=== PATIENT | female | born 1955 | race American Indian/Alaskan Native ===

== ENCOUNTER 2018-12-17 06:10 | Observation (INO) | payer OTHER ==
[2018-12-17] MEDS ORDERED: ECOTRIN PO ONE (06:39)
[2018-12-17 07:08] LABS: Basophils # (Auto) 0.1 K/mm3 (0.0-0.1); Basophils % (Auto) 1.1 % (0.0-1.8); Eosinophils # (Auto) 0.4 K/mm3 (0.0-0.4); Eosinophils % (Auto) 6.6 % (0.0-4.3); Hematocrit 41.1 % (30.3-42.9); Hemoglobin 13.9 gm/dl (10.1-14.3); Lymphocytes # (Auto) 1.7 K/mm3 (1.2-5.4); Lymphocytes % (Auto) 26.5 % (13.4-35.0); Mean Corpuscular HGB Conc 34 % (30-34); Mean Corpuscular Volume 82 fl (79-97); Monocytes # (Auto) 0.6 K/mm3 (0.0-0.8); Monocytes % (Auto) 8.6 % (0.0-7.3); Platelet Count 126 K/mm3 (140-440); Red Blood Count 4.99 M/mm3 (3.65-5.03); Red Cell Distribution Width 15.4 % (13.2-15.2)
[2018-12-17 07:18] LABS: INR 0.94 (0.87-1.13)
[2018-12-17 07:19] LABS: BUN/Creatinine Ratio 17; Blood Urea Nitrogen 12 mg/dL (7-17); Calcium 9.1 mg/dL (8.4-10.2); Hemolysis Index 82; Partial Thromboplastin Time 27.7 Sec. (24.2-36.6)
[2018-12-17] MEDS ORDERED: HEPARIN 10,000 UNITS/10 ML ONE (09:24)
[2018-12-17] MEDS ORDERED: NITROGLYCERIN SYRINGE 3 ML ONE (09:25)
[2018-12-17] MEDS ORDERED: CALAN ONE (09:25)
[2018-12-17] MEDS: SUBLIMAZE ONE ×2 (09:53→10:08)
[2018-12-17] MEDS: VERSED ONE ×2 (09:53→10:08)
[2018-12-17] MEDS: HEPARIN/NS 5000 UNIT/500ML(CATH LAB) 1,000 ML IR ONE ×2 (09:54→10:00)
[2018-12-17] MEDS: NACL 0.9% 500 ML 500 ML IV SCH ×2 (09:54→10:00)
[2018-12-17] MEDS: XYLOCAINE 2% INFILTRATI ONE ×3 (09:54→10:11)
[2018-12-17] MEDS ORDERED: ZESTRIL PO SCH (10:00)
[2018-12-17] MEDS ORDERED: PLAVIX ONE (10:57)
[2018-12-17] MEDS ORDERED: ALUM-MAG HYDROX-SIMETH 200-200-20MG/5ML ONE (10:58)
--- NOTE | 2018-12-17 11:24 | Event Note ---
Date: 12/17/18 Patient underwent outpatient cardiac catheterization, followed by ad hoc coronary angioplasty and stenting of the mid and distal segments of the LAD, excellent angiographic result. She will be admitted for overnight observation, post intervention routine management. Anticipated discharge tomorrow morning.
[2018-12-17] MEDS ORDERED: NACL 0.9% 1000 ML 1,000 ML IV SCH (12:00)
[2018-12-17] MEDS ORDERED: IMDUR PO SCH (12:00)
--- NOTE | 2018-12-17 12:50 | Cardiac Catherization Report ---
CARDIAC CATHETERIZATION AND CORONARY ANGIOPLASTY REASON FOR PROCEDURE: The patient is a 63-year-old woman with a history of 3-vessel coronary artery bypass surgery performed in 1999. She recently presented for outpatient evaluation. A thallium stress test was done that revealed reversible ischemia in the anterior and lateral regions of the left ventricle. Based on the thallium results, she is recommended for a cardiac catheterization. PROCEDURE: 1. Left heart catheterization. 2. Selective left and right coronary angiography. 3. Left ventricular angiography. 4. Angiography of the left internal mammary artery. 5. Angiography of the saphenous vein graft. 6. Coronary angioplasty and stenting of the left anterior descending artery in its mid and distal segments. 7. Sedation time, start 10:07, end 10:53. The patient was prepped and draped in a sterile fashion after informed consent. The right femoral artery was entered using Seldinger technique followed by placement of a 6-[place] sheath. Selective left and right coronary angiography was performed using #4 right and left Anuradha catheters. The right Anuradha catheter was used for saphenous vein graft angiography. A left internal mammary artery catheter was used for the left internal mammary artery angiography. A pigtail catheter was then used for left ventricle angiography. The angiograms were reviewed. CORONARY ANGIOGRAPHY: The left main coronary artery was free of significant disease. The left anterior descending artery was not previously bypassed. This vessel contained focal stenosis of the mid segment, about 70% severity followed by another focal 90% stenosis of the distal segment near the apex. The LAD was a large wrap around vessel. The first diagonal branch of the LAD was completely occluded at its origin. This vessel was noted to have contained a previous stent in its proximal segment. It was occluded within the stented segment. A saphenous vein graft was anastomosed to a small to medium sized sub-branch of the first diagonal. This vein graft was patent with good anastomosis and good distal runoff into a mildly diffusely diseased sub-branch vessel. There was a 30-50% ostial stenosis of the saphenous vein graft, followed by diffuse mild atherosclerosis of the body of the graft. The [place] circumflex artery was completely occluded in its proximal segment. The saphenous vein graft to the circumflex system was patent, but appear to perfuse a very small terminal obtuse marginal branch. This saphenous vein graft contained diffuse mild atherosclerosis in its proximal and mid segments, with a 70% stenosis of the distal body of the vein graft. As reported, the target branch was a very small caliber terminal obtuse marginal. The right coronary artery was dominant, and also occluded in its proximal segment. The saphenous vein graft to the right coronary system was occluded at its origin. There was faint collateralization of the distal right coronary segments from the left coronary system. The left ventricle was moderately dilated. There was moderately severe left ventricular systolic dysfunction, diffuse hypokinesis, ejection fraction estimated at 35%. CORONARY ANGIOPLASTY: After review of the angiograms, we recommended conservative management of the saphenous vein graft to the diagonal sub-branch, the saphenous vein graft to the small terminal obtuse marginal, and the occluded right coronary system, which was fed by faint collaterals from the left coronary system. We recommended ad hoc coronary intervention to optimally perfuse the large wraparound LAD. It appeared that the LAD was not previously bypassed. We selected a 4.0 EBU guiding catheter, advanced to the left coronary ostium. A 0.014 inch [employer] Dispatcher 50 guidewire was then directed into the LAD across the lesional segments. In a primary stenting maneuver, we first deployed a 2.5 x 8 mm drug-eluting stent to the distal LAD stenosis, inflating to stent optimal pressures. An excellent angiographic result was achieved. We then turned our attention to the mid stenosis, where we deployed a 2.75 x 8 mm drug-eluting stent, similarly inflating to optimal pressures. Following stenting, the wires were removed, post-intervention angiograms revealed an excellent angiographic result at the mid and distal segments of the LAD that were treated with spot stenting, FLOR[place] 3 flow and excellent angiographic result. The patient tolerated the procedure well and there were no complications. The catheters and the wires and the sheaths were removed, hemostasis achieved using an Angio-Seal device. The patient was returned to the postprocedure unit in stable condition. CONCLUSION: 1. Severe 3-vessel coronary artery disease. 2. Ischemic cardiomyopathy, moderately severe left ventricular dysfunction, ejection fraction 35%. 3. Patent saphenous vein graft to the diagonal sub-branch, with a 30-40% stenosis of the proximal vein graft. 4. Patent saphenous vein graft to the distal circumflex, with a 60-70% distal stenosis of the body of the vein graft. 5. Occluded saphenous vein graft to the right coronary, the small distal vessel is filled from left collaterals. 6. Severe disease of the LAD, which was not previously bypassed. A 75% stenosis of the mid segment, and another focal 90% stenosis of the distal segment were treated successfully with serial 8 mm 2.5 and 2.75 drug-eluting stents. JOB# [id number] JOANNA/NTS
[2018-12-17] MEDS ORDERED: NACL 0.9% 1000 ML 1,000 ML ONE (13:11)
[2018-12-17] MEDS ORDERED: NON-FORMULARY (Lisinopril/Hydrochlorothiazide [Zestoretic 10-12.5 Mg Tablet] 1 TAB) PO SCH (22:00)
[2018-12-17] MEDS ORDERED: LOPRESSOR PO SCH (22:00)
[2018-12-18 06:00] LABS: Basophils % (Auto) 0.5 % (0.0-1.8); Eosinophils # (Auto) 0.4 K/mm3 (0.0-0.4); Eosinophils % (Auto) 6.1 % (0.0-4.3); Hemoglobin 12.8 gm/dl (10.1-14.3); Lymphocytes # (Auto) 0.9 K/mm3 (1.2-5.4); Lymphocytes % (Auto) 15.9 % (13.4-35.0); Mean Corpuscular HGB Conc 34 % (30-34); Mean Corpuscular Volume 83 fl (79-97); Monocytes # (Auto) 0.5 K/mm3 (0.0-0.8); Platelet Count 110 K/mm3 (140-440); Red Blood Count 4.56 M/mm3 (3.65-5.03); Red Cell Distribution Width 15.4 % (13.2-15.2)
[2018-12-18 06:29] LABS: BUN/Creatinine Ratio 20; Blood Urea Nitrogen 14 mg/dL (7-17); Calcium 8.5 mg/dL (8.4-10.2); Creatine Kinase MB 6.6 ng/mL (0.0-4.0); Hemolysis Index 7
[2018-12-18 07:23] LABS: Chol/HDL Ratio 6.03 %; HDL Cholesterol 30 mg/dL (40-59); LDL Cholesterol,Direct 142 mg/dL (50-130)
--- NOTE | 2018-12-18 08:40 | XRay Report ---
AP CHEST: HISTORY: Post PCI Previous CABG changes are suspected. Heart size is borderline. The lungs are clear. No pleural effusion or pneumothorax. IMPRESSION: Borderline heart size. Lungs clear.
[2018-12-18] MEDS ORDERED: NITROSTAT SL PRN (09:47)
[2018-12-18] MEDS ORDERED: ZESTRIL PO SCH (09:47)
--- NOTE | 2018-12-18 09:54 | Discharge Summary ---
Providers - Providers Date of Admission: 12/17/18 11:24 Date of discharge: 12/18/18 Attending physician: ZANDER CORCORAN 12/17/18 Consult to Cardiac Rehabilitation [CONS] Routine Reason For Exam: post pci Primary care physician: BRADLEY SEAMAN MD Hospitalization Reason for admission: Elective admission for coronary angio and PCI Condition: Good Pertinent studies: Cath and PCI Procedures: Cath and PCI Hospital course: Patient electively admitted for coronary angio and PCI (please see cath report for details. No complications post PCI. Right groin intact. Patient denies chest pain or shortness of breath. Lipitor increased to 80 mg po qhs and Zetia added upon discharge in order to achieve LDL cholesterol below or equal to 50. 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 Disposition: - TO HOME OR SELFCARE Time spent for discharge: 31 min - Discharge Diagnoses (1) Coronary artery disease Status: Acute Qualifiers: Coronary Disease-Associated Artery/Lesion type: [place] artery [place] vs. transplanted heart: [place] heart Associated angina: with stable angina Qualified Code(s): I25.118 - Atherosclerotic heart disease of [place] coronary artery with other forms of angina pectoris Core Measure Documentation - Palliative Care Palliative Care/ Comfort Measures: Not Applicable - Core Measures Any of the following diagnoses?: none Exam - Constitutional Vitals: Temp Pulse Resp BP Pulse Ox 98.4 F 66 18 117/67 99 12/18/18 08:20 12/18/18 08:19 12/18/18 08:19 12/18/18 08:19 12/18/18 09:35 General appearance: Present: no acute distress - EENT Eyes: Present: PERRL - Neck Neck: Present: supple - Respiratory Respiratory effort: normal Respiratory: bilateral: CTA - Cardiovascular Rhythm: regular - Extremities Extremities: no ischemia - Abdominal General gastrointestinal: Present: soft, non-tender Plan Activity: no driving until cleared by PCP (for another 24 hours) Weight Bearing Status: Non-Weight Bearing (for another 24 hours) Diet: low fat, low cholesterol, low salt Wound: keep clean and dry Follow up with: BRADLEY SEAMAN MD [Primary Care Provider] - 7 Days Forms: Work/School Excuse Out Patient Prescriptions: Aspirin EC [Aspirin Enteric Coated TAB] 81 mg PO DAILY #90 tablet hydroCHLOROthiazide [HCTZ] 25 mg PO QDAY #30 capsule ISOSORBIDE MONOnitrate [Imdur ER] 30 mg PO QDAY #30 tablet AtorvaSTATin [Lipitor] 80 mg PO HS #30 tablet Metoprolol Xl [Metoprolol SUCCINATE ER TAB] 100 mg PO QDAY #30 tablet Nitroglycerin [Nitrostat] 0.4 mg SL .Q5MIN PRN #25 tablet PRN Reason: Chest Pain Clopidogrel [Plavix] 75 mg PO QDAY #30 tablet Lisinopril [Zestril TAB] 20 mg PO QDAY #30 tablet Ezetimibe [Zetia] 10 mg PO QDAY #30 tablet
[2018-12-18] MEDS ORDERED: PLAVIX PO SCH (10:00)
[2018-12-18] MEDS ORDERED: HCTZ PO SCH ×2 (10:00)
[2018-12-18] MEDS ORDERED: HALFPRIN EC PO SCH (10:00)
[2018-12-18] MEDS ORDERED: TOPROL XL PO SCH (10:00)
[2018-12-18] MEDS ORDERED: ZETIA PO SCH (10:00)
[2018-12-18 11:57] VITALS: BP 112/60
== END 2018-12-18 13:31 | disposition home or self-care (01) ==
LOC: CATHLABREC 06:10 → 4A 11:24
PROVIDERS: ADMIT Internal Medicine Cardiovascular Disease; ATTEND Internal Medicine Cardiovascular Disease
DX: I25.10 Atherosclerotic heart disease of native coronary artery without angina pectoris (principal); F41.9 Anxiety disorder, unspecified; M19.90 Unspecified osteoarthritis, unspecified site; E78.5 Hyperlipidemia, unspecified; R07.89 Other chest pain; I10 Essential (primary) hypertension; F17.210 Nicotine dependence, cigarettes, uncomplicated; Z98.61 Coronary angioplasty status; Z88.0 Allergy status to penicillin; Z88.1 Allergy status to other antibiotic agents; Z79.899 Other long term (current) drug therapy
CPT/HCPCS: 36415; 71045; 80048; 80061; 82550; 82553; 82962; 84484; 85025; 85610; 85730; 93005; 93010; 93459; A9270; C1760; C1769; C1874; C1887; C1894; C9600; G0378; J1644; J2250; J3010; J7030; J7040; 85347; 92928; Q9967